=== PATIENT | male | born 1950 | race Caucasian/White ===

== ENCOUNTER 2021-02-07 11:22 | Inpatient (IN) | payer MEDICARE, OTHER ==
[~2021-02-07] VITALS: Ht 180.3 cm; Wt 61.2 kg
[2021-02-07] MEDS ORDERED: DIVA-78 PO (11:48)
[2021-02-07] MEDS ORDERED: METO25TA4 PO (11:48)
[2021-02-07] MEDS ORDERED: FOLI0.8T3 PO (11:48)
[2021-02-07] MEDS ORDERED: RIVA15TA PO (11:48)
[2021-02-07] MEDS ORDERED: CARI350T27 PO (11:48)
[2021-02-07] MEDS ORDERED: FINA5TAB11 PO (11:48)
[2021-02-07] MEDS ORDERED: ISOS30TA86 PO (11:48)
[2021-02-07] MEDS ORDERED: OXYC1TAB12 PO (11:48)
[2021-02-07] MEDS ORDERED: ATOR40TA PO (11:48)
[2021-02-07] MEDS ORDERED: DULO60CA64 PO (11:48)
[2021-02-07] MEDS ORDERED: PANT40TA49 PO (11:48)
[2021-02-07] MEDS ORDERED: TAMS-12 PO (11:48)
[2021-02-07] MEDS ORDERED: ALPR1TAB7 MT (11:48)
[2021-02-07] MEDS ORDERED: PREG-58 PO (11:48)
[2021-02-07 12:15] VITALS: BP 102/57
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
[2021-02-07] MEDS ORDERED: MAGNESIUM HYDROXIDE 30 ML UDC PO PRN (13:00)
[2021-02-07] MEDS ORDERED: BLOOD SUGAR DIAGNOSTIC 1 EACH STRIP IN ONE (13:00)
[2021-02-07] MEDS ORDERED: ACETAMINOPHEN 325 MG TABLET PO PRN (13:00)
[2021-02-07 16:00] VITALS: BP 110/56
[2021-02-07] MEDS: DIVALPROEX SODIUM 250 MG TABLET.DR PO SCH (17:00)
--- NOTE | 2021-02-07 17:11 | NUR ---
GPS/RN PT REFUSED DEPAKOTE OFFERED X3
[2021-02-07] MEDS: RIVAROXABAN 15 MG TABLET PO SCH (17:37)
--- NOTE | 2021-02-07 19:55 | NUR ---
RN NOTE CALLED LAB TO [facility] MRSA SPECIMEN. ASSEMBLER KNIFE STATED THAT IT WILL BE PICKED UP WITH NEXT ROUND IF THERE IS ANY BLOOD DRAW.
[2021-02-07 20:00] VITALS: BP 109/51
[2021-02-07 20:14] VITALS: BP 109/51
--- NOTE | 2021-02-07 20:35 | NUR ---
RN NOTE MRSA SPECIMEN PICKED UP BY LAB.
--- NOTE | 2021-02-07 20:37 | NUR ---
RN NOTE: REFUSED SKIN ASSESSMENT PATIENT REFUSED SKIN ASSESSMENT UPON ADMISSION DURING DAY SHIFT & CONTINUED TO REFUSE AT TIME, STATED," I WANT TO REST, I AM FREEZING, NOT NOW, MAY BE I TOMORROW." DESPITE OF EXPLANATIONS, PATIENT CONTINUED TO REFUSE SKIN ASSESSMENT.
[2021-02-07] MEDS: MAG HYDROX/AL HYDROX/SIMETH 30 ML UDC PO PRN (20:56)
--- NOTE | 2021-02-07 20:58 | NUR ---
RN NOTE: PRN MAALOX GIVEN PATIENT C/O BLOATING, GAS & UPSET STOMACH & REQUESTED FOR MEDICINE. PRN MAALOX ADMINISTERED ORDERED. WILL CONTINUE TO MONITOR.
[2021-02-07] MEDS: OLANZAPINE 5 MG TABLET PO SCH (21:00)
--- NOTE | 2021-02-07 21:10 | NUR ---
RN NOTE SNACK OFFERED TO THE PATIENT & TOLERATED WELL, ABLE TO AMBULATE TO THE RESTROOM ON HIS OWN PACE.
--- NOTE | 2021-02-07 21:23 | NUR ---
RN NOTE: REFUSED ZYPREXA PATIENT REFUSED ZYPREXA 5 MG AT 2100, STATED," I HAVE TRIED THIS MEDICINE FOR 30 DAYS, DIDN'T WORK FOR ME, I HAVE TOLD THE DOCTOR & CHARGE NURSE ALREADY THAT I AM NOT TAKING IT." DESPITE OF RISKS & BENEFITS EXPLANATIONS, PATIENT CONTINUED TO REFUSE MEDICINE.
[2021-02-07 21:30] VITALS: BP 119/80
[2021-02-07] MEDS: ATORVASTATIN 40 MG TABLET PO SCH (21:30)
[2021-02-07] MEDS: TAMSULOSIN 0.4 MG CAP.SR.24H PO SCH (21:30)
[2021-02-07] MEDS: oxyCODONE/APAP (5/325 MG) 1 UDTAB TABLET PO PRN (21:41)
--- NOTE | 2021-02-07 21:43 | NUR ---
RN NOTE: PAIN PATIENT C/O GENERALIZED BODY ACHE 02/24 & REQUESTED TO TAKE PERCOCET. PER PATIENT," I HAVE BEEN TAKING PERCOCET SINCE LAST 15 YEARS & IT WORKS FOR ME." PERCOCET 5/325 MG 1 TAB PO ADMINISTERED ORDERED. VITALS ARE STABLE 119/80, 80, 18, 98F, 99% AT RA, WILL CONTINUE TO MONITOR FOR ANY CHANGES.
[2021-02-07] MEDS: TEMAZEPAM 7.5 MG CAPSULE PO PRN (22:45)
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
[2021-02-08] MEDS: clonazePAM 0.5 MG TABLET PO PRN ×3 (03:44→20:09)
[2021-02-08 08:00] VITALS: BP 117/50
[2021-02-08 08:37] LABS: BASOPHILS % (AUTO) 0.6 % (0.0-2.0); HEMATOCRIT 32 % (39-51); HEMOGLOBIN 10.4 g/dL (13.5-17.5); LYMPHOCYTES # (AUTO) 0.4 K/uL (0.8-4.8); LYMPHOCYTES % (AUTO) 4.6 % (20.0-44.0); MEAN CORPUSCULAR HGB CONC 33 g/dl (31.0-36.0); MEAN CORPUSCULAR VOLUME 89 fL (80-96); MONOCYTES % (AUTO) 12.1 % (2.0-12.0); NEUTROPHILS # (AUTO) 6.2 K/uL (1.8-8.9); NEUTROPHILS % (AUTO) 79.7 % (43.0-81.0); PLATELET COUNT (AUTO) 253 K/uL (150-450); WHITE BLOOD COUNT (AUTO) 7.8 K/uL (4.3-11.0)
[2021-02-08] MEDS: OLANZAPINE 5 MG TABLET PO SCH ×2 (08:53→20:11)
[2021-02-08] MEDS: FOLIC ACID 1 MG TABLET PO SCH (08:53)
[2021-02-08] MEDS: PANTOPRAZOLE 40 MG TABLET.DR PO SCH (08:53)
[2021-02-08] MEDS: FINASTERIDE (5 MG) 5 MG TABLET PO SCH (08:53)
[2021-02-08] MEDS: DIVALPROEX SODIUM 250 MG TABLET.DR PO SCH ×2 (08:53→17:43)
[2021-02-08] MEDS: ISOSORBIDE MONONITRATE (30MG) 30 MG TAB.SR.24H PO SCH (08:56)
[2021-02-08] MEDS: METOPROLOL SUCCINATE 25 MG TAB.SR.24H PO SCH (08:57)
[2021-02-08 10:14] LABS: THYROID STIMULATING HORMONE 2.648 uIU/mL (0.358-3.74)
[2021-02-08 10:40] LABS: ALBUMIN 1.8 g/dL (3.4-5.0); BILIRUBIN,TOTAL 0.4 mg/dL (0.2-1.0); CALCIUM, SERUM 7.7 mg/dL (8.5-10.1); CREATININE 0.9 mg/dL (0.6-1.3); MAGNESIUM 1.5 mg/dL (1.8-2.4); PHOSPHORUS 2.9 mg/dL (2.5-4.9); POTASSIUM 3.8 mmol/L (3.5-5.1); TOTAL PROTEIN, SERUM 4.6 g/dL (6.4-8.2)
[2021-02-08] MEDS: ENSURE ENLIVE 237 ML LIQUID (VANILLA) PO SCH ×2 (13:00→17:43)
--- NOTE | 2021-02-08 14:10 | NUR ---
Patient c/o anxiety medicated with Klonopin 0.5mg po x1 will continue to monitor .
[2021-02-08 16:00] VITALS: BP 119/61
[2021-02-08] MEDS: RIVAROXABAN 15 MG TABLET PO SCH (17:47)
[2021-02-08 20:00] VITALS: BP 104/52
[2021-02-08] MEDS: MAG HYDROX/AL HYDROX/SIMETH 30 ML UDC PO PRN (20:07)
--- NOTE | 2021-02-08 20:09 | NUR ---
RN NOTES, PATIENT S/O ANXIETY, KLONOPIN PO 0.5mg po x1 ADMINISTERED ORDERED, WILL CONTINUE TO MONITOR CLOSELY.
[2021-02-08] MEDS: TAMSULOSIN 0.4 MG CAP.SR.24H PO SCH (21:32)
[2021-02-08] MEDS: ATORVASTATIN 40 MG TABLET PO SCH (21:33)
[2021-02-08] MEDS: TEMAZEPAM 7.5 MG CAPSULE PO PRN (21:38)
--- NOTE | 2021-02-08 21:38 | NUR ---
RN NOTES, PATIENT WITH INABILITY TO SLEEP, AND REQUESTED MEDICATION TO SLEEP, RESTORIL PO 7.5MG ADMINISTERED ORDERED. WILL CONTINUE TO MONITOR CLOSELY.
--- NOTE | 2021-02-08 22:38 | NUR ---
RN NOTES, PATIENT NOTED SLEEPING AT THIS TIME, MEDICATION EFFECTIVE. WILL CONTINUE TO MONITOR CLOSELY.
[2021-02-09 08:00] VITALS: BP 122/59
[2021-02-09] MEDS: FOLIC ACID 1 MG TABLET PO SCH (08:38)
[2021-02-09] MEDS: FINASTERIDE (5 MG) 5 MG TABLET PO SCH (08:38)
[2021-02-09] MEDS: OLANZAPINE 5 MG TABLET PO SCH ×2 (08:38→20:48)
[2021-02-09] MEDS: PANTOPRAZOLE 40 MG TABLET.DR PO SCH (08:39)
[2021-02-09] MEDS: ENSURE ENLIVE 237 ML LIQUID (VANILLA) PO SCH ×3 (08:40→17:45)
[2021-02-09] MEDS: METOPROLOL SUCCINATE 25 MG TAB.SR.24H PO SCH (08:44)
[2021-02-09] MEDS: ISOSORBIDE MONONITRATE (30MG) 30 MG TAB.SR.24H PO SCH (08:44)
[2021-02-09] MEDS: DIVALPROEX SODIUM 250 MG TABLET.DR PO SCH ×2 (08:49→17:00)
--- NOTE | 2021-02-09 08:50 | NUR ---
PT REFUSED DIVALPROEX SODIUM.
[2021-02-09] MEDS: oxyCODONE/APAP (5/325 MG) 1 UDTAB TABLET PO PRN (08:57)
[2021-02-09] MEDS ORDERED: LORAZEPAM INJ 2 MG/ML VIAL IM STA ×2 (14:09→14:19)
[2021-02-09] MEDS ORDERED: HALOPERIDOL LACTATE INJ 5 MG/ML VIAL IM STA (14:09)
[2021-02-09] MEDS ORDERED: diphenhydrAMINE HCL 50 MG/ML VIAL IM STA (14:09)
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
[2021-02-09] MEDS ORDERED: MAGNESIUM OXIDE 400 MG TABLET PO ONE (14:30)
--- NOTE | 2021-02-09 14:35 | NUR ---
RN NOTE- ESCALATING BEHAVIORS. DR CROWLEY ORDERED HALDOL 5 MG, ATIVAN 2 MG , AND BENADRYL 50 MG GIVEN IM STAT. EMERGENCY IM GIVEN W STAFF ASSIST. TOLERATED WELL.
--- NOTE | 2021-02-09 15:04 | NUR ---
Family contact: SW contacted pts sister Floridalma Avery ([phone]) regarding pts discharge plan. Per Floridalma, pt should be discharged to a SNF because pt is unable to take care of himself. DOMINGUEZ reports that she will make referrals to SNF but pt has the choice not to go to the SNF upon discharge. SW will keep Floridalma updated about pts care and discharge plan.
[2021-02-09 16:22] VITALS: BP 99/59
[2021-02-09] MEDS: RIVAROXABAN 15 MG TABLET PO SCH (17:46)
--- NOTE | 2021-02-09 17:50 | NUR ---
PT REFUSED DIVALPROEX SODIUM. AWARE.
[2021-02-09] MEDS: ATORVASTATIN 40 MG TABLET PO SCH (20:47)
[2021-02-09] MEDS: TAMSULOSIN 0.4 MG CAP.SR.24H PO SCH (20:47)
[2021-02-09] MEDS: clonazePAM 0.5 MG TABLET PO PRN ×2 (20:47→21:55)
[2021-02-09] MEDS: TEMAZEPAM 7.5 MG CAPSULE PO PRN (20:51)
[2021-02-10] MEDS: clonazePAM 0.5 MG TABLET PO PRN ×2 (04:36→20:12)
[2021-02-10 08:00] VITALS: BP 111/60
[2021-02-10] MEDS: OLANZAPINE 5 MG TABLET PO SCH ×2 (08:52→21:03)
[2021-02-10] MEDS: DIVALPROEX SODIUM 250 MG TABLET.DR PO SCH ×2 (08:52→16:16)
[2021-02-10] MEDS: FOLIC ACID 1 MG TABLET PO SCH (08:52)
[2021-02-10] MEDS: PANTOPRAZOLE 40 MG TABLET.DR PO SCH (08:52)
[2021-02-10] MEDS: ENSURE ENLIVE 237 ML LIQUID (VANILLA) PO SCH ×3 (08:52→16:11)
[2021-02-10] MEDS: FINASTERIDE (5 MG) 5 MG TABLET PO SCH (08:53)
[2021-02-10] MEDS: METOPROLOL SUCCINATE 25 MG TAB.SR.24H PO SCH (08:53)
[2021-02-10] MEDS: ISOSORBIDE MONONITRATE (30MG) 30 MG TAB.SR.24H PO SCH (08:53)
[2021-02-10] MEDS: oxyCODONE/APAP (5/325 MG) 1 UDTAB TABLET PO PRN (12:30)
--- NOTE | 2021-02-10 15:04 | NUR ---
Initial Discharge plan: Pt currently lives alone in his home located on [address] [place] [address]; [phone]. Per pt he would like to return home upon discharge. Per pts sister, pt needs a higher level of care and needs to be discharged to a SNF. SW will work with the pt and the MD regarding appropriate discharge planning. SW will form a safe and proper discharge.
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
[2021-02-10 16:00] VITALS: BP 128/78
[2021-02-10] MEDS: RIVAROXABAN 15 MG TABLET PO SCH (16:14)
[2021-02-10 20:00] VITALS: BP 132/70
--- NOTE | 2021-02-10 20:14 | NUR ---
RN NOTES: ANXIETY PT. C/O FEELING ANXIOUS ,PARANOID ,PACING IN HALLWAY , KLONOPIN 0.5 MG PO PRN GIVEN PER PT. REQUEST, WILL CONTINUE TO MONITOR.
[2021-02-10] MEDS: TAMSULOSIN 0.4 MG CAP.SR.24H PO SCH (21:03)
[2021-02-10] MEDS: ATORVASTATIN 40 MG TABLET PO SCH (21:03)
[2021-02-11] MEDS: oxyCODONE/APAP (5/325 MG) 1 UDTAB TABLET PO PRN ×2 (04:55→23:08)
[2021-02-11] MEDS: MAG HYDROX/AL HYDROX/SIMETH 30 ML UDC PO PRN (06:30)
--- NOTE | 2021-02-11 06:32 | NUR ---
RN NOTE: PRN MAALOX GIVEN PATIENT C/O BLOATING, GAS & UPSET STOMACH & REQUESTED FOR MEDICINE. PRN MAALOX ADMINISTERED ORDERED. WILL CONTINUE TO MONITOR.
[2021-02-11] MEDS: ENSURE ENLIVE 237 ML LIQUID (VANILLA) PO SCH ×3 (08:50→16:48)
[2021-02-11] MEDS: OLANZAPINE 5 MG TABLET PO SCH ×2 (08:51→20:45)
[2021-02-11] MEDS: PANTOPRAZOLE 40 MG TABLET.DR PO SCH (08:51)
[2021-02-11] MEDS: FINASTERIDE (5 MG) 5 MG TABLET PO SCH (08:51)
[2021-02-11] MEDS: FOLIC ACID 1 MG TABLET PO SCH (08:51)
[2021-02-11] MEDS: ISOSORBIDE MONONITRATE (30MG) 30 MG TAB.SR.24H PO SCH (08:51)
[2021-02-11] MEDS: METOPROLOL SUCCINATE 25 MG TAB.SR.24H PO SCH (08:52)
[2021-02-11] MEDS: DIVALPROEX SODIUM 250 MG TABLET.DR PO SCH ×2 (08:57→16:49)
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
--- NOTE | 2021-02-11 09:11 | NUR ---
SNF Referral: DOMINGUEZ sent a referral to [facility] to fax number [phone] and fax number [phone].
[2021-02-11 09:13] VITALS: BP 123/64
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
[2021-02-11 16:35] VITALS: BP 112/60
[2021-02-11] MEDS: RIVAROXABAN 15 MG TABLET PO SCH (16:49)
[2021-02-11 20:32] VITALS: BP 104/54
[2021-02-11] MEDS: ATORVASTATIN 40 MG TABLET PO SCH (20:45)
[2021-02-11] MEDS: TAMSULOSIN 0.4 MG CAP.SR.24H PO SCH (20:45)
[2021-02-11] MEDS: TEMAZEPAM 7.5 MG CAPSULE PO PRN (23:08)
[2021-02-12 08:00] VITALS: BP 92/52
[2021-02-12] MEDS: DIVALPROEX SODIUM 250 MG TABLET.DR PO SCH ×3 (08:19→16:40)
[2021-02-12] MEDS: FOLIC ACID 1 MG TABLET PO SCH (08:20)
[2021-02-12] MEDS: ISOSORBIDE MONONITRATE (30MG) 30 MG TAB.SR.24H PO SCH (08:20)
[2021-02-12] MEDS: clonazePAM 0.5 MG TABLET PO PRN ×3 (08:21→20:22)
[2021-02-12] MEDS: OLANZAPINE 5 MG TABLET PO SCH ×2 (08:21→21:00)
[2021-02-12] MEDS: PANTOPRAZOLE 40 MG TABLET.DR PO SCH (08:25)
[2021-02-12] MEDS: METOPROLOL SUCCINATE 25 MG TAB.SR.24H PO SCH (08:25)
[2021-02-12] MEDS: FINASTERIDE (5 MG) 5 MG TABLET PO SCH (08:25)
[2021-02-12] MEDS: ENSURE ENLIVE 237 ML LIQUID (VANILLA) PO SCH ×3 (08:27→16:25)
--- NOTE | 2021-02-12 08:49 | NUR ---
RN-CO: PT REFUSED KLONOPIN TABLET. PT IS VERY UNPREDICTABLE, ENTITLED AND EASILY AGITATED.
--- NOTE | 2021-02-12 10:15 | NUR ---
APS Report: SW filed an APS report (report # [id number]) due to pts inability to maintain safe and clean living conditions in his home. Per pts sister, pt is unable to to maintain safe/clean environment in his home and while pt is in the hospital, there have been police reports about people stealing pts belongings from his home. DOMINGUEZ will follow up with pts family and APS at a later time.
--- NOTE | 2021-02-12 10:31 | NUR ---
Family contact: SW contacted pts sister Floridalma Avery ([phone]) and reports that she filed an APS report on pt. Pts sister confirmed. SW will follow up with pts sister at a later time regarding the case.
[2021-02-12 16:00] VITALS: BP 122/71
[2021-02-12] MEDS: oxyCODONE/APAP (5/325 MG) 1 UDTAB TABLET PO PRN ×2 (16:34→17:37)
[2021-02-12] MEDS: RIVAROXABAN 15 MG TABLET PO SCH (16:36)
[2021-02-12 20:00] VITALS: BP 131/70
[2021-02-12] MEDS: TAMSULOSIN 0.4 MG CAP.SR.24H PO SCH (21:06)
[2021-02-12] MEDS: ATORVASTATIN 40 MG TABLET PO SCH (21:06)
[2021-02-13] VITALS (7 sets, daily range): BP systolic 106–122; BP diastolic 59–76
[2021-02-13] MEDS: FOLIC ACID 1 MG TABLET PO SCH (08:12)
[2021-02-13] MEDS: METOPROLOL SUCCINATE 25 MG TAB.SR.24H PO SCH (08:12)
[2021-02-13] MEDS: ISOSORBIDE MONONITRATE (30MG) 30 MG TAB.SR.24H PO SCH ×2 (08:13→08:44)
[2021-02-13] MEDS: PANTOPRAZOLE 40 MG TABLET.DR PO SCH (08:13)
[2021-02-13] MEDS: OLANZAPINE 5 MG TABLET PO SCH ×3 (08:13→20:20)
[2021-02-13] MEDS: DIVALPROEX SODIUM 250 MG TABLET.DR PO SCH ×4 (08:13→17:00)
[2021-02-13] MEDS: FINASTERIDE (5 MG) 5 MG TABLET PO SCH (08:13)
[2021-02-13] MEDS: oxyCODONE/APAP (5/325 MG) 1 UDTAB TABLET PO PRN ×2 (09:03→17:05)
[2021-02-13] MEDS: ENSURE ENLIVE 237 ML LIQUID (VANILLA) PO SCH ×3 (09:04→17:04)
--- NOTE | 2021-02-13 09:20 | NUR ---
Pt. is selective on meds, refused to take the Depakote, Zyprexa and Imdur po. Explained on the importance and offered 3x and pt. is still refusing and said " I dont want that medications".
--- NOTE | 2021-02-13 11:27 | NUR ---
Probable cause hearing: Pts [id number] was upheld on the grounds of gravely disabled.
--- NOTE | 2021-02-13 11:28 | NUR ---
Writ: Pt filed for writ. DOMINGUEZ faxed writ to [facility] fax #[phone]
--- NOTE | 2021-02-13 12:52 | NUR ---
Dr. Singleton made aware that pt. filed for a Writ of Habeas Corpus and made aware that pt. is refusing to take the Zyprexa and Depakote meds.
--- NOTE | 2021-02-13 13:05 | NUR ---
Pt. refused to take the Depakote po and said I don't want it.
--- NOTE | 2021-02-13 13:27 | NUR ---
Police contact: DOMINGUEZ contacted the [place] Police station and spoke with Alice, police record tech ID #[id number] on 02/13/2021 @ 13:27 to notify her that pt will be discharged on Tuesday02/16/2021 at 1:00 pm to his home located on [address] [place] [address]. Alice confirmed of discharge and will notify appropriate parties at [place] [employer] pt's discharge.
--- NOTE | 2021-02-13 13:55 | NUR ---
Police contact: DOMINGUEZ was contacted by the [place] Police station and spoke with Alice, police record tech ID #[id number] on 02/13/2021 @ 13:55 who inquired for pts address. DOMINGUEZ informed Alice of pts address located on [address] [facility] [address] [facility] [address]. Alice reports that pts incident # is [id number].
[2021-02-13] MEDS: RIVAROXABAN 15 MG TABLET PO SCH (17:11)
[2021-02-13] MEDS: clonazePAM 0.5 MG TABLET PO PRN (18:17)
[2021-02-13] MEDS: TAMSULOSIN 0.4 MG CAP.SR.24H PO SCH (21:15)
[2021-02-13] MEDS: ATORVASTATIN 40 MG TABLET PO SCH (21:15)
[2021-02-14] MEDS: clonazePAM 0.5 MG TABLET PO PRN ×2 (02:02→20:18)
--- NOTE | 2021-02-14 02:03 | NUR ---
RN NOTES: ANXIETY PT. C/O FEELING ANXIOUS ,PARANOID ,PACING IN HALLWAY , HYPERVERBAL KLONOPIN 0.5 MG PO PRN GIVEN PER PT. REQUEST, WILL CONTINUE TO MONITOR.
[2021-02-14 08:00] VITALS: BP 114/76
[2021-02-14] MEDS: FOLIC ACID 1 MG TABLET PO SCH (08:13)
[2021-02-14] MEDS: METOPROLOL SUCCINATE 25 MG TAB.SR.24H PO SCH (08:13)
[2021-02-14] MEDS: PANTOPRAZOLE 40 MG TABLET.DR PO SCH (08:13)
[2021-02-14] MEDS: FINASTERIDE (5 MG) 5 MG TABLET PO SCH (08:13)
[2021-02-14] MEDS: ISOSORBIDE MONONITRATE (30MG) 30 MG TAB.SR.24H PO SCH ×2 (08:14→09:00)
[2021-02-14] MEDS: OLANZAPINE 5 MG TABLET PO SCH ×2 (09:00→21:00)
[2021-02-14] MEDS: ENSURE ENLIVE 237 ML LIQUID (VANILLA) PO SCH ×3 (09:13→16:55)
--- NOTE | 2021-02-14 09:15 | NUR ---
Pt. seen by Dr. Ospina with scab on the chest and ordered to cleanse with NS, pat dry and cover with dressing, daily.
--- NOTE | 2021-02-14 09:43 | NUR ---
Pt. is selective on meds. Pt. refused to take Zyprexa and Imdur, was explained on the importance and pt. still refusing and said "I don't want it". Psychiatrist made aware
[2021-02-14] MEDS: oxyCODONE/APAP (5/325 MG) 1 UDTAB TABLET PO PRN (13:13)
[2021-02-14 16:09] VITALS: BP 113/66
[2021-02-14] MEDS: RIVAROXABAN 15 MG TABLET PO SCH (16:55)
[2021-02-14 20:00] VITALS: BP 131/75
[2021-02-14 20:20] VITALS: BP 131/75
--- NOTE | 2021-02-14 20:21 | NUR ---
RN NOTE: ANXIETY PATIENT NOTED TO BE VERY ANXIOUS, RESTLESS, HYPERVERBAL, LOUD, AGITATED & AGGRESSIVE. PRN KLONOPIN 0.5 MG 1 TAB PO ADMINISTERED. VITALS STABLE AT THIS TIME. WILL CONTINUE TO MONITOR.
[2021-02-14] MEDS: TAMSULOSIN 0.4 MG CAP.SR.24H PO SCH (21:26)
[2021-02-14] MEDS: ATORVASTATIN 40 MG TABLET PO SCH (21:27)
--- NOTE | 2021-02-14 22:21 | NUR ---
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
[2021-02-15] MEDS: TEMAZEPAM 7.5 MG CAPSULE PO PRN ×2 (00:02→23:02)
--- NOTE | 2021-02-15 00:08 | NUR ---
RN NOTE: INSOMNIA PATIENT VERBALIZED THAT HE IS UNABLE TO SLEEP & WANTED TO TAKE SLEEPING MEDICINE. PRN RESTORIL 7.5 MG 1 CAP PO ADMINISTERED.
[2021-02-15 08:00] VITALS: BP_SYST 101; BP_SYST 124; BP_SYST 136; BP_DIAS 57; BP_DIAS 60; BP_DIAS 65
[2021-02-15] MEDS: METOPROLOL SUCCINATE 25 MG TAB.SR.24H PO SCH (09:27)
[2021-02-15] MEDS: OLANZAPINE 5 MG TABLET PO SCH ×2 (09:29→21:11)
[2021-02-15] MEDS: FINASTERIDE (5 MG) 5 MG TABLET PO SCH (09:30)
[2021-02-15] MEDS: ISOSORBIDE MONONITRATE (30MG) 30 MG TAB.SR.24H PO SCH (09:30)
[2021-02-15] MEDS: PANTOPRAZOLE 40 MG TABLET.DR PO SCH (09:31)
[2021-02-15] MEDS: FOLIC ACID 1 MG TABLET PO SCH (09:31)
[2021-02-15] MEDS: ENSURE ENLIVE 237 ML LIQUID (VANILLA) PO SCH ×3 (09:31→17:27)
[2021-02-15 16:00] VITALS: BP 112/61
[2021-02-15] MEDS: oxyCODONE/APAP (5/325 MG) 1 UDTAB TABLET PO PRN (17:25)
[2021-02-15] MEDS: RIVAROXABAN 15 MG TABLET PO SCH (17:27)
[2021-02-15 20:00] VITALS: BP 125/74
[2021-02-15] MEDS: TAMSULOSIN 0.4 MG CAP.SR.24H PO SCH (21:11)
[2021-02-15] MEDS: ATORVASTATIN 40 MG TABLET PO SCH (21:11)
[2021-02-15] MEDS: clonazePAM 0.5 MG TABLET PO PRN (21:40)
--- NOTE | 2021-02-15 21:40 | NUR ---
GPS-RN NOTE: ANXIETY PATIENT C/O FEELING ANXIOUS. PRN KLONOPIN 0.5 MG 1 TAB PO GIVEN PER PATIENT'S REQUEST. WILL CONTINUE TO MONITOR FOR PATIENT'S SAFETY.
--- NOTE | 2021-02-15 23:02 | NUR ---
GPS-RN NOTES: PATIENT C/O INABILITY TO SLEEP. PRN RESTORIL 7.5MG PO GIVEN. WILL CONTINUE TO MONITOR.
[2021-02-16 08:00] VITALS: BP 109/67
[2021-02-16] MEDS: OLANZAPINE 5 MG TABLET PO SCH (08:11)
[2021-02-16] MEDS: PANTOPRAZOLE 40 MG TABLET.DR PO SCH (08:11)
[2021-02-16] MEDS: FINASTERIDE (5 MG) 5 MG TABLET PO SCH (08:11)
[2021-02-16] MEDS: FOLIC ACID 1 MG TABLET PO SCH (08:12)
[2021-02-16] MEDS: ENSURE ENLIVE 237 ML LIQUID (VANILLA) PO SCH (08:13)
[2021-02-16 08:14] VITALS: BP 109/67
[2021-02-16] MEDS: ISOSORBIDE MONONITRATE (30MG) 30 MG TAB.SR.24H PO SCH (08:14)
[2021-02-16] MEDS: METOPROLOL SUCCINATE 25 MG TAB.SR.24H PO SCH (08:14)
--- NOTE | 2021-02-16 10:30 | NUR ---
SS Note: DOMINGUEZ discussed [facility] plan [facility] [address]; [phone]] with pt. and the pt. refused stating I have a safe place to go. My house. I want to go home. DOMINGUEZ called and notified Dr. Singleton and Dr. Aquino of above stated information and both are agreeable for pt. to D/C to self and go home. DOMINGUEZ discussed with nurse, Priscilla. DOMINGUEZ will follow up accordingly for safe & proper discharge.
--- NOTE | 2021-02-16 12:20 | NUR ---
MEDICATION MANAGER NOTE: 70 YEAR OLD MALE DISCHARGED HOME IN STABLE CONDITION. COMPLIANT WITH MEDICATIONS, COOPERATIVE WITH TREATMENT PLANS. PATIENT DENIES SI/HI AND INSTRUCTED TO GO TO THE CLOSEST ER IF EXPERIENCING. BEHAVIOR IMPROVED, PSYCHIATRIC TREATMENT PLANS DEFERRED FOR CONTINUAL MONITORING. EDUCATED PT RE AFTER CARE PLAN AND COPY PROVIDED. RETURNED PERSONAL BELONGINGS TO PATIENT. MEDICATIONS RECONCILED WITH DR. CROWLEY AND DR. HARRISON. PT SIGNED DISCHARGE PAPERWORK. ID BANDS REMOVED. PT LEFT THE UNIT VIA AMBULATION.
--- NOTE | 2021-02-16 12:25 | NUR ---
Discharge Note: The pt. has been discharged back to home [ [address] [place] [address]; [phone]]. Pt. departed via ambulation with al pass per pt.s request. Upon discharge pt. is A & O x 3. Pt. appears to be in irritable with guarded affect. Pt. denies SI/HI and denies hallucinations. DOMINGUEZ provided pt. With substance use referrals. Pt. was also referred to [facility] [[address] [facility] ; [phone]] for adult mental health services, psychiatry and drug abuse Tx. DOMINGUEZ called the [place] Police station and spoke with adriane Golden incident # is [id number] to notify them that the pt. has been discharged and will return home today. DOMINGUEZ also called and left the Pt.s sister, Floridalma Avery ([phone]) a voicemail notifying family of discharge. DOMINGUEZ provided pt. with the following addiction and mental health resources: [facility] Substance Abuse Self-Helpline ([facility]) ; [facility] [address] [facility]. [place] [id number] ; [facility] [address] [facility] [address] ; [facility] [address] [facility] [address] ; [facility] [address] [facility] [id number] ; [facility] [address] [facility] [id number] ; [facility] [address] [facility] [id number] ; [facility] Substance Abuse Helpline([facility])-[facility] ; [facility] ; [facility]; [facility] [place]; [facility] [place];Marijuana Anonymous -[facility]V; [facility]; [facility]; [facility]; [facility]; Alcoholics Anonymous -SFV; [facility] resources provided: [facility] [address] [place] [address] ; [facility] [address] [facility] [address], [place] [address] ; [facility] [address] [place] [address] ; [facility] [place], [place] [id number] Healthcare Clinics: [facility] [address] [facility], [address] [place]. [place] ; [facility] [address] [facility] [address] [place] [address]; [facility] [address] [facility] [address] [phone]
== END 2021-02-16 13:30 | DRG 885 ==
LOC: GPS 11:22
PROVIDERS: ADMIT Nurse Practitioner Acute Care; ATTEND Family Medicine
DX: F31.64 Bipolar disorder, current episode mixed, severe, with psychotic features (principal); E43 Unspecified severe protein-calorie malnutrition; Z68.1 Body mass index [BMI] 19.9 or less, adult; F29 Unspecified psychosis not due to a substance or known physiological condition; F12.90 Cannabis use, unspecified, uncomplicated; Z85.828 Personal history of other malignant neoplasm of skin; I48.91 Unspecified atrial fibrillation; G43.909 Migraine, unspecified, not intractable, without status migrainosus; F10.10 Alcohol abuse, uncomplicated; Y90.9 Presence of alcohol in blood, level not specified; Z95.0 Presence of cardiac pacemaker; N40.0 Benign prostatic hyperplasia without lower urinary tract symptoms; I67.2 Cerebral atherosclerosis; G89.29 Other chronic pain; M79.7 Fibromyalgia; F17.210 Nicotine dependence, cigarettes, uncomplicated; Z98.890 Other specified postprocedural states; C44.90 Unspecified malignant neoplasm of skin, unspecified; E83.42 Hypomagnesemia; Z86.73 Personal history of transient ischemic attack (TIA), and cerebral infarction without residual deficits
CPT/HCPCS: 36415; 70450-TC; 80053-TC; 80061-TC; 83735-TC; 84100-TC; 84443-TC; 85025-TC; 87081-TC; 97110-TC; 97116-TC; 97530-TC; J1200; J1630; J2060

== ENCOUNTER 2024-01-31 01:35 | Inpatient (IN) | payer MEDICARE, OTHER ==
[~2024-01-31] VITALS: Ht 180.3 cm; Wt 58.1 kg
[~2024-01-31 01:35] MED LIST: ALPR1TAB7 MT; ATOR40TA PO; CARI350T27 PO; DIVA-78 PO; DULO60CA64 PO; FINA5TAB11 PO; FOLI0.8T3 PO; ISOS30TA86 PO; METO25TA4 PO; OXYC1TAB12 PO; PANT40TA49 PO; PREG-58 PO; RIVA15TA PO; TAMS-12 PO
[2024-01-31 01:50] VITALS: BP 131/82; TEMP 98; O2SAT 96
[2024-01-31] MEDS ORDERED: MAG HYDROX/AL HYDROX/SIMETH 30 ML UDC PO PRN (02:00)
[2024-01-31] MEDS ORDERED: MAGNESIUM HYDROXIDE 30 ML UDC PO PRN (02:00)
[2024-01-31] MEDS ORDERED: LORAZEPAM 0.5 MG TABLET PO PRN (02:00)
[2024-01-31] MEDS ORDERED: MIDO5TAB4 MT (02:51)
[2024-01-31] MEDS ORDERED: FLUD0.1T MT (02:51)
[2024-01-31] MEDS ORDERED: DAPA10TA PO (02:58)
[2024-01-31] MEDS ORDERED: OXYC-128 PO (03:07)
[2024-01-31] MEDS ORDERED: DULO60CA45 PO (03:07)
[2024-01-31] MEDS ORDERED: RIVA10TA PO (03:07)
[2024-01-31] MEDS ORDERED: CARI350T27 PO (03:07)
[2024-01-31] MEDS ORDERED: ATOR80TA PO (03:07)
[2024-01-31] MEDS ORDERED: PANT40TA2 PO (03:07)
[2024-01-31] MEDS ORDERED: ONDA4TAB11 PO (03:07)
[2024-01-31] MEDS ORDERED: TAMS-12 PO (03:07)
[2024-01-31] MEDS ORDERED: PANT40TA49 PO (03:07)
[2024-01-31] MEDS: BLOOD SUGAR DIAGNOSTIC 1 EACH STRIP IN ONE (03:19)
[2024-01-31 08:00] VITALS: BP 130/90; TEMP 98.6; O2SAT 97
[2024-01-31] MEDS ORDERED: FLUDROCORTISONE 0.1 MG TABLET PO SCH (09:00)
[2024-01-31] MEDS ORDERED: Medication Not On Formulary EA (Duloxetine Hcl (Cymbalta) 60 MG) PO SCH (09:00)
[2024-01-31] MEDS ORDERED: DULOXETINE HCL 30 MG CAPSULE.DR PO SCH (09:00)
[2024-01-31] MEDS ORDERED: RIVAROXABAN 15 MG TABLET PO SCH (09:00)
[2024-01-31] MEDS ORDERED: ISOSORBIDE MONONITRATE (30MG) 30 MG TAB.SR.24H PO SCH (09:00)
[2024-01-31] MEDS: PANTOPRAZOLE 40 MG TABLET.DR PO SCH (09:36)
[2024-01-31] MEDS: METOPROLOL SUCCINATE 25 MG TAB.SR.24H PO SCH (09:56)
[2024-01-31] MEDS: FINASTERIDE (5 MG) 5 MG TABLET PO SCH (09:56)
[2024-01-31] MEDS: MIDODRINE HCL (5MG) 5 MG TABLET PO SCH (09:56)
[2024-01-31] MEDS: THIAMINE HCL 100 MG TABLET PO SCH (10:14)
[2024-01-31] MEDS: MULTIPLE VIT (LYCOPENE/FA/MV,CA,IRON,MIN/LUT)1 TAB PO SCH (12:04)
[2024-01-31 16:00] VITALS: BP 120/68; TEMP 97.9; O2SAT 99
[2024-01-31] MEDS: OLANZAPINE 2.5 MG TABLET PO SCH (16:45)
[2024-01-31] MEDS: RIVAROXABAN 10 MG TABLET PO SCH (16:46)
[2024-01-31] MEDS: ENSURE ENLIVE 237 ML LIQUID (VANILLA) PO SCH (18:46)
[2024-01-31 20:43] VITALS: BP 99/69; TEMP 98; O2SAT 97
[2024-01-31] MEDS: TAMSULOSIN 0.4 MG CAP.SR.24H PO SCH (21:27)
[2024-01-31] MEDS: ATORVASTATIN 40 MG TABLET PO SCH (21:27)
[2024-01-31] MEDS ORDERED: DIVALPROEX SODIUM 500 MG TABLET.DR PO SCH (22:00)
[2024-01-31] MEDS ORDERED: ATORVASTATIN 40 MG TABLET PO SCH (22:00)
[2024-02-01] MEDS: ZOLPIDEM TARTRATE 5 MG TABLET PO PRN (00:48)
[2024-02-01 08:00] VITALS: BP 100/63; TEMP 97.9; O2SAT 99
[2024-02-01 08:08] LABS: ALANINE AMINOTRANSFERASE 26 U/L (12-78); ALBUMIN 2.1 g/dL (3.4-5.0); ALKALINE PHOSPHATASE 167 U/L (46-116); ASPARTATE AMINOTRANSFERASE 36 U/L (15-37); BILIRUBIN,TOTAL 0.4 mg/dL (0.2-1.0); CALCIUM, SERUM 9.1 mg/dL (8.5-10.1); CARBON DIOXIDE 28 mmol/L (21-32); CHLORIDE 105 mmol/L (98-107); CREATININE 0.8 mg/dL (0.6-1.3); GLUCOSE 85 mg/dL (74-106); POTASSIUM 4.2 mmol/L (3.5-5.1); SODIUM SERUM 140 mmol/L (136-145); TOTAL PROTEIN, SERUM 6.1 g/dL (6.4-8.2); UREA NITROGEN, BLOOD 16 mg/dL (7-18)
[2024-02-01] MEDS ORDERED: THIAMINE HCL 100 MG TABLET PO SCH (09:00)
[2024-02-01] MEDS ORDERED: FOLIC ACID 1 MG TABLET PO SCH (09:00)
[2024-02-01] MEDS ORDERED: MULTIPLE VIT (LYCOPENE/FA/MV,CA,IRON,MIN/LUT)1 TAB PO SCH (09:00)
[2024-02-01 09:04] LABS: CHOLESTEROL 141 mg/dL (<200); HDL CHOLESTEROL 70 mg/dL (40-60); LDL 61 mg/dL (0-99); TRIGLYCERIDES 55 mg/dL (30-150)
[2024-02-01] MEDS: DIAZEPAM 5 MG TABLET PO PRN (12:24)
[2024-02-01 16:00] VITALS: BP 116/79; TEMP 98.2; O2SAT 99
[2024-02-01 20:38] VITALS: BP 112/72; TEMP 98.4; O2SAT 98
[2024-02-02 08:00] VITALS: BP 95/71; TEMP 98; O2SAT 96
[2024-02-02 16:00] VITALS: BP 112/71; TEMP 97.9; O2SAT 98
[2024-02-02 20:00] VITALS: BP 108/75; TEMP 98.1; O2SAT 98
[2024-02-02] MEDS: DIVALPROEX SODIUM 250 MG TABLET.DR PO SCH (21:22)
[2024-02-03 08:00] VITALS: BP 117/93; TEMP 97.7; O2SAT 98
[2024-02-03 16:00] VITALS: BP 104/59; TEMP 97.7; O2SAT 98
[2024-02-03 20:00] VITALS: BP 125/96; TEMP 97.6; O2SAT 97
[2024-02-03] MEDS ORDERED: Z GUARD REMEDY 4 OZ OINT TP PRN (20:00)
[2024-02-04 08:00] VITALS: BP 110/77; TEMP 97.9; O2SAT 97
[2024-02-04] MEDS: LORAZEPAM INJ 2 MG/ML VIAL IM ONE (12:18)
[2024-02-04] MEDS: OLANZAPINE 10 MG VIAL IM ONE (12:18)
[2024-02-04 16:18] VITALS: BP 115/76; TEMP 97.8; O2SAT 99
[2024-02-04] MEDS: OLANZAPINE 5 MG TABLET PO SCH (17:41)
[2024-02-04 20:00] VITALS: BP 115/71; TEMP 97.6; O2SAT 96
[2024-02-04] MEDS: LORAZEPAM 0.5 MG TABLET PO PRN (23:59)
[2024-02-05 07:40] LABS: BASOPHILS % (AUTO) 0.5 % (0.0-2.0); EOSINOPHILS # (AUTO) 0.5 K/uL (0.0-0.7); EOSINOPHILS % (AUTO) 6.5 % (0.0-6.0); HEMATOCRIT 41 % (39-51); HEMOGLOBIN 13.7 g/dL (13.5-17.5); LYMPHOCYTES # (AUTO) 0.5 K/uL (0.8-4.8); LYMPHOCYTES % (AUTO) 6.3 % (20.0-44.0); MEAN CORPUSCULAR HEMOGLOBIN 31 PG (26.0-33.0); MEAN CORPUSCULAR HGB CONC 34 g/dl (31.0-36.0); MEAN CORPUSCULAR VOLUME 91 fL (80-96); MONOCYTES # (AUTO) 1.2 K/uL (0.1-1.30); MONOCYTES % (AUTO) 16.9 % (2.0-12.0); NEUTROPHILS # (AUTO) 5.1 K/uL (1.8-8.9); NEUTROPHILS % (AUTO) 69.8 % (43.0-81.0); PLATELET COUNT (AUTO) 327 K/uL (150-450); RED BLOOD CELL COUNT(AUTO) 4.48 MIL/uL (4.5-6.0); RED CELL DISTRIBUTION WIDTH 16.3 % (11.5-15.0); WHITE BLOOD COUNT (AUTO) 7.3 K/uL (4.3-11.0)
[2024-02-05 07:56] LABS: ALBUMIN 2.1 g/dL (3.4-5.0); BILIRUBIN,DIRECT 0.1 mg/dL (0.0-0.2); BILIRUBIN,TOTAL 0.4 mg/dL (0.2-1.0); TOTAL PROTEIN, SERUM 5.8 g/dL (6.4-8.2)
[2024-02-05 08:00] VITALS: BP 132/64; TEMP 98; O2SAT 100
[2024-02-05 09:20] LABS: ANISOCYTOSIS 1+; EOSINOPHILS % (MANUAL) 4 % (0-4); LYMPHOCYTES % (MANUAL) 7 % (16-48); MONOCYTES % (MANUAL) 12 % (0-11.0); NEUTROPHILS % (MANUAL) 77 (42-76); OVALOCYTES 1+; PLATELET ESTIMATE ADEQUATE
[2024-02-05 16:06] VITALS: BP 117/84; TEMP 98.6; O2SAT 96
[2024-02-05 20:32] VITALS: BP 117/70; TEMP 98.3; O2SAT 97
[2024-02-05] MEDS: DIVALPROEX SODIUM 250 MG TABLET.DR PO SCH (21:33)
[2024-02-06 08:00] VITALS: BP 110/77; TEMP 98.6; O2SAT 98
[2024-02-06] MEDS ORDERED: DIVALPROEX SODIUM 125 MG TABLET.DR PO SCH (09:00)
[2024-02-06] MEDS: LITHIUM CARBONATE 150 MG CAPSULE PO SCH (09:15)
[2024-02-06 10:18] LABS: THYROID STIMULATING HORMONE 1.34 uIU/mL (0.358-3.74)
[2024-02-06] MEDS ORDERED: MECLIZINE HCL 12.5 MG TABLET PO PRN (12:30)
[2024-02-06 16:00] VITALS: BP 110/55; TEMP 98.4; O2SAT 98
[2024-02-06 21:21] VITALS: BP 100/58; TEMP 98.2; O2SAT 97
[2024-02-07 08:00] VITALS: BP 124/61; TEMP 98.7; O2SAT 97
[2024-02-07] MEDS: OLANZAPINE 5 MG TABLET PO SCH (09:00)
[2024-02-07 16:00] VITALS: BP 113/90; TEMP 98.1; O2SAT 98
[2024-02-07 21:12] VITALS: BP 120/80; TEMP 97.8; O2SAT 98
[2024-02-08] MEDS: hydrOXYzine PAMOATE 25 MG CAPSULE PO PRN (00:21)
[2024-02-08 08:00] VITALS: BP 114/75; TEMP 98.7; O2SAT 98
[2024-02-08 16:00] VITALS: BP 117/65; TEMP 97.8; O2SAT 96
[2024-02-08 20:00] VITALS: BP 99/58; TEMP 98; O2SAT 95
[2024-02-09 08:00] VITALS: BP 100/55; TEMP 98.4; O2SAT 96
[2024-02-09 14:07] VITALS: BP 109/67
[2024-02-09 16:00] VITALS: BP 130/82; TEMP 98.4; O2SAT 100
[2024-02-09 20:00] VITALS: BP 127/66; TEMP 97.3; O2SAT 98
[2024-02-10 08:00] VITALS: BP 116/81; TEMP 97.9; O2SAT 95
[2024-02-10 16:00] VITALS: BP 107/72; TEMP 98.3; O2SAT 96
[2024-02-11 08:00] VITALS: BP 95/72; TEMP 97.8; O2SAT 98
[2024-02-11 16:00] VITALS: BP 118/89; TEMP 97.3; O2SAT 100
[2024-02-11 16:01] VITALS: BP 118/89
== END 2024-02-11 17:40 | DRG 885 ==
LOC: GPS 01:35
PROVIDERS: ADMIT Psychiatry & Neurology Psychiatry; ATTEND Nurse Practitioner Acute Care
DX: F31.2 Bipolar disorder, current episode manic severe with psychotic features (principal); F10.229 Alcohol dependence with intoxication, unspecified; D68.69 Other thrombophilia; F10.239 Alcohol dependence with withdrawal, unspecified; F03.93 Unspecified dementia, unspecified severity, with mood disturbance; E44.1 Mild protein-calorie malnutrition; Z68.1 Body mass index [BMI] 19.9 or less, adult; F29 Unspecified psychosis not due to a substance or known physiological condition; I25.10 Atherosclerotic heart disease of native coronary artery without angina pectoris; F41.9 Anxiety disorder, unspecified; N40.0 Benign prostatic hyperplasia without lower urinary tract symptoms; M79.7 Fibromyalgia; G89.29 Other chronic pain; I48.91 Unspecified atrial fibrillation; Z85.828 Personal history of other malignant neoplasm of skin; Z88.6 Allergy status to analgesic agent; Z90.49 Acquired absence of other specified parts of digestive tract; G43.909 Migraine, unspecified, not intractable, without status migrainosus; Z91.148 Patient's other noncompliance with medication regimen for other reason; Z20.822 Contact with and (suspected) exposure to COVID-19; Y90.9 Presence of alcohol in blood, level not specified; Z95.0 Presence of cardiac pacemaker; F12.10 Cannabis abuse, uncomplicated
CPT/HCPCS: 36415; 80053-TC; 80061-TC; 80076-TC; 80164-TC; 82962-TC; 84439-TC; 84443-TC; 84481; 85025-TC; 87081-TC; J2060; J3490; Q0177